=== PATIENT | female | born 2005 | race Hispanic/Latino ===

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

== ENCOUNTER 2025-04-20 23:10 | Emergency (ER) | payer SELFPAY ==
[~2025-04-20] VITALS: Ht 160 cm; Wt 58.1 kg
--- NOTE | 2025-04-20 23:55 | ERN ---
General Chief Complaint: Vaginal Bleeding Stated Complaint: C/O VAGINAL BLEEDING W/LOWER ABD PAIN; 13WKS Time Seen by MD: 23:11 History of Present Illness Initial Comments 19-year-old female who states she is about 11 and 13 weeks here for evaluation of vaginal bleeding, and abdominal pain. Patient states she has been having intermittent crampy abdominal pain for the past 48 hours with vaginal clots noted. No vomiting or diarrhea. She does not have a OBGYN but states that she has an appointment with a one set for next week. Allergies: Coded Allergies: No Known Allergies (Unverified Allergy, Unknown, 05/07/22) Home Meds Active Scripts Cephalexin (Cephalexin) 500 Mg Tablet, 1 TAB PO TID for 7 Days, #21 TAB 0 Refills Prov:VICKY DUMONT MD 04/21/25 Past Medical History Past Medical History: No Pertinent History Past Surgical History: None Female( History) : 1 Para: 0 Aborts: 0 Gastrointestinal/Abdominal: (+) abdominal pain Genitourinary: (+) vaginal bleeding Review of Systems: was completed, & the rest were negative. Physical Exam Physical Exam Dictation GENERAL APPEARANCE NAD, activity normal for age, well developed/ well nourished, no cyanosis, pallor, or diaphoresis. EYES lids/conjunctiva normal. EARS/NOSE/THROAT Mucous membranes moist, nares normal, lips/teeth normal uvula midline without oral pharyngeal erythema, exudate or swelling TMs normal bilaterally. No lymphangitis/lymphedema. HEAD/NECK normocephalic atraumatic, no facial trauma, neck is supple. RESPIRATORY respiratory effort normal, speaks in full sentences, no tripod position, no accessory muscle use. Lungs clear to auscultation without rhonchi, wheezes, rales CARDIAC Regular rate and rhythm, no edema. ABDOMINAL Soft, ND/NT. No evidence of fluid wave. No pulsatile masses on exam, rebound tenderness, Leonardo sign or pain over Mcburney's point. MUSCLES/EXTREMITIES No abnormal range of motion, no swelling. SKIN Warm, pink and dry. No rashes, dermatoses, petechiae or lesions. NEUROLOGICAL Speech is clear and appropriate. Normal level of consciousness. Gait and coordination are normal. 5/5 strength in all extremities. PSYCH Normal mood and affect. Judgement/competence is appropriate Gastrointestinal Comment Gravid abdomen Results Laboratory and Microbiology Lab and Micro Result Laboratory Tests Test 04/20/25 23:39 04/20/25 23:59 Urine Color LIGHT-ORANGE (YELLOW) Urine Appearance TURBID (CLEAR) Urine pH 5.5 (5.0-8.0) Urine Specific [place] 1.027 (1.001-1.031) Urine Protein 20 mg/dL (NEGATIVE) H Urine Glucose (UA) NEGATIVE mg/dL (NEGATIVE) Urine Ketones NEGATIVE mg/dL (NEGATIVE) Urine Occult Blood LARGE (NEGATIVE) H Urine Nitrate NEGATIVE (NEGATIVE) Urine Bilirubin NEGATIVE mg/dL (NEGATIVE) Urine Urobilinogen 0.2 mg/dL (0.2-1.0) Urine Leukocyte Esterase 25 Hiren/uL (NEGATIVE) H Urine RBC TNTC /HPF (0-1) H Urine WBC 11-25 /HPF (0-1) H Urine Squamous Epithelial Cells MOD /HPF (0-2) Urine Bacteria RARE /HPF (None Seen) White Blood Count 8.4 K/uL (4.8-10.8) Red Blood Count 4.16 MIL/uL (4.00-5.50) Hemoglobin 12.0 g/dL (12.0-16.0) Hematocrit 35.6 % (36-48) L Mean Corpuscular Volume 85.6 fL (80-100) Mean Corpuscular Hemoglobin 28.8 pg (27.0-33.0) Mean Corpuscular Hemoglobin Concent 33.7 g/dL (32.0-36.0) Red Cell Distribution Width 13.0 % (11.0-15.5) Platelet Count 232 K/uL (130-400) Mean Platelet Volume 11.0 fL (7.5-10.5) H Immature Granulocyte % (Auto) 0.1 % (0-1) Neutrophils (%) (Auto) 66.3 % (40.0-77.0) Lymphocytes (%) (Auto) 24.6 % (21.0-51.0) Monocytes (%) (Auto) 7.8 % (3.0-13.0) Eosinophils (%) (Auto) 1.0 % (0.0-8.0) Basophils (%) (Auto) 0.2 % (0.0-5.0) Neutrophils # (Auto) 5.5 K/uL (1.8-7.7) Lymphocytes # (Auto) 2.1 K/uL (1.0-4.8) Monocytes # (Auto) 0.7 K/uL (0.1-1.0) Eosinophils # (Auto) 0.08 K/uL (0.00-0.70) Basophils # (Auto) 0.02 K/uL (0.00-0.20) Absolute Immature Granulocyte (auto 0.01 K/uL (0-1) Nucleated Red Blood Cells 0.0 % (0.0-0.19) Sodium Level 139 mmol/L (136-145) Potassium Level 3.9 mmol/L (3.5-5.1) Chloride Level 103 mmol/L (101-111) Carbon Dioxide Level 28 mmol/L (21-32) Blood Urea Nitrogen 12 mg/dL (7-18) Creatinine 0.6 mg/dL (0.5-1.0) Glomerular Filtration Rate Calc 132 mL/min (>90) Random Glucose 92 mg/dL (70-105) Total Calcium 8.9 mg/dL (8.5-10.1) Human Chorionic Gonadotropin, Quant 5367 mIU/mL (0-5) H MDM 19-year-old female here for evaluation of vaginal bleeding. HCG positive. Ultrasound shows no obvious pole. She is actively bleeding however she does not want me to examine her at this time. She has a follow up with her OBGYN on the 10th of next week. Her labs are reassuring for me to discharge her home at this time. Advised her to take Tylenol/as needed for pain. She does have a slight UTI for which I will treat her with c cephalosporin here and at home. Patient's prior external medical records from other ER visits were reviewed by me as indicated. Prior testing and results from previous visits were reviewed. Prior tests were taken into account with medical decision making and resource utilization, independent historian/historians were used to obtain complete medical history. I independently interpreted the test that were performed, results were reviewed by me and considered findings on radiology if ordered. Medical management and examination interpretation discussions were had by me with other qualified healthcare professionals as indicated for the patient's c are. Labs and imaging reviewed with patient. All questions answered at this time. Patient advised to follow up with primary care physician in the next few days. Patient well-appearing, no acute distress. Vital signs stable. Will discharge at this time. ED Course Orders Procedure Category Date Status Time Cbc With Differential LAB 04/20/25 Complete 23:13 Basic Metabolic Panel LAB 04/20/25 Complete 23:13 Hcg,Quantitative LAB 04/20/25 Complete 23:13 Urinalysis Profile LAB 04/20/25 Complete 23:13 Us Ob Transvaginal US 04/20/25 Taken 23:47 Culture Urine ABILIO 04/21/25 In Process 00:14 Ceftriaxone 1g Vial PHA 04/21/25 Complete (Rocephine 1g Inj) 01:00 Current Medications Medications (Trade) Dose Ordered Sig/Santosh Route PRN Reason Start Time Stop Time Status Last Admin Dose Admin Ceftriaxone Sodium (ROCEphine 1G INJ) 1 gm ONCE ONCE IVPB 04/21/25 01:00 04/21/25 01:01 DC Vital Signs Date Time Temp Pulse Resp B/P (MAP) Pulse Ox O2 Delivery O2 Flow Rate FiO2 04/20/25 23:45 98.2 83 17 124/65 100 Room Air* 0 21 04/20/25 23:11 98.2 91 20 113/70 100 Room Air DX & DISP Disposition: Discharge Departure Impression: Primary Impression: UTI (urinary tract infection) Additional Impression: Threatened in early Condition: Stable Scripts Cephalexin (Cephalexin) 500 Mg Tablet 1 TAB PO TID for 7 Days, #21 TAB 0 Refills Prov: VICKY DUMONT MD 04/21/25 Referrals: SELF,REFERRAL (PCP) VICKY DUMONT MD Apr 20, 2025 23:55
[2025-04-21 00:08] LABS: IMMATURE GRANULOCYTE ABSOLUTE 0.01 K/uL (0-1); NUCLEATED RED BLOOD CELLS 0.0 % (0.0-0.19); PLATELET COUNT (AUTO) 232 K/uL (130-400); RED BLOOD CELL COUNT(AUTO) 4.16 MIL/uL (4.00-5.50); RED CELL DISTRIBUTION WIDTH 13.0 % (11.0-15.5); WHITE BLOOD COUNT (AUTO) 8.4 K/uL (4.8-10.8)
[2025-04-21 00:10] LABS: APPEARANCE,URINE TURBID (CLEAR); GLUCOSE, URINE (UA) NEGATIVE (NEGATIVE); LEUKOCYTE ESTERASE ,URINE 25 Leu/uL (NEGATIVE); NITRATE,URINE NEGATIVE (NEGATIVE); OCCULT BLOOD,URINE LARGE (NEGATIVE)
[2025-04-21 00:13] LABS: ADD UA MICROSCOPIC YES
[2025-04-21 00:14] LABS: SQUAMOUS EPITHELIAL CELL,UR MOD /HPF (0-2)
[2025-04-21 00:19] LABS: CREATININE 0.6 mg/dL (0.5-1.0); GLOMERULAR FILTR. RATE CALC 132.0 mL/min (>90); GLUCOSE,RANDOM 92.0 mg/dL (70-105); SODIUM SERUM 139.0 mmol/L (136-145); UREA NITROGEN, BLOOD 12.0 mg/dL (7-18)
[2025-04-21] MEDS ORDERED: CEPH500T PO (01:08)
--- NOTE | 2025-04-21 01:37 | HMCIMG ---
EXAM: US Obstetrical, Complete <14 weeks CLINICAL HISTORY: g1po 13 weeks, r/o miscarriage TECHNIQUE: Transabdominal imaging of the maternal pelvis and a < 14-week gestation with image documentation. COMPARISON: None provided. FINDINGS: GESTATION: A well-defined gestational sac is identified within the endometrium with a mean sac diameter of 2.8 cm, measuring 6 weeks 6 days. No embryonic pole is identified at this time. UTERUS: Unremarkable. No myometrial mass. The uterus measures 9.2 x 5.8 x 5.4 cm. CERVIX: Free fluid is identified in the cervix of a patient who is actively bleeding. Free fluid in the Morison's pouch. OVARIES: Unremarkable. No mass. The right ovary measures 2.1 x 1.7 x 2.1 cm. The left ovary measures 2.5 x 1.3 x 1.6 cm. FREE FLUID: Mild free fluid. IMPRESSION: Single intrauterine gestational sac with a mean sac diameter of 2.8 cm corresponding to 6 weeks 6 days. No embryonic pole is seen at this time. Follow-up imaging after 2 weeks, with correlation to serum beta-hCG levels to rule out the possibility of early failure Fluid in the Morison's pouch. /[place]
[2025-04-21 01:58] VITALS: BP 111/63; PULSE 80; RESP 17; TEMP 98.2; O2SAT 99
== END 2025-04-21 02:00 | disposition home or self-care (01) ==
LOC: EDH 23:10
DX: O20.0 Threatened abortion (principal); O23.41 Unspecified infection of urinary tract in pregnancy, first trimester; N39.0 Urinary tract infection, site not specified; Z3A.13 13 weeks gestation of pregnancy
CPT/HCPCS: 99285; 80048; 84702; 85025; 87086; 81001; 36415; 76817; 96374; J0696